=== PATIENT | female | born 1990 | race Caucasian/White ===

== ENCOUNTER 2024-12-28 19:54 | Emergency (ER) | payer OTHER ==
[~2024-12-28] VITALS: Ht 157.5 cm; Wt 90.0 kg
[2024-12-28] MEDS: SODIUM CHLORIDE 0.9% 1,000 ML IV ONE (20:41)
[2024-12-28 20:48] VITALS: BP 131/80; PULSE 77; RESP 12; O2SAT 99
== END 2024-12-28 20:40 | disposition short-term general hospital (02) ==
LOC: ER 19:54
DX: O62.4 Hypertonic, incoordinate, and prolonged uterine contractions (principal); Z3A.38 38 weeks gestation of pregnancy; Z98.890 Other specified postprocedural states
CPT/HCPCS: 99291; 96360; J7030